=== PATIENT | male | born 1965 | race Caucasian/White ===

== ENCOUNTER 2017-04-20 07:49 | Emergency (ER) | payer BC ==
[2017-04-20] MEDS ORDERED: CEFAZOLIN 2 GM/D5W RTU 50 ML IV ONE (07:58)
[2017-04-20] MEDS ORDERED: DIPH/PERTUSS(ACELL)/TETANUS VAC/PF 0.5 ML SYR (>=10YO) IM ONE (07:59)
[2017-04-20] MEDS ORDERED: NORMAL SALINE 1000 ML 1,000 ML IV ONE (08:19)
[2017-04-20 10:00] LABS: ABSOLUTE BASOPHILS # (AUTO) 0.1 10^3/uL (0.0-0.2); ABSOLUTE EOSINOPHILS # (AUTO) 0.1 10^3/uL (0.0-0.6); ABSOLUTE LYMPHOCYTES (AUTO) 1.8 10^3/uL (0.5-4.7); ABSOLUTE MONOCYTES (AUTO) 0.7 10^3/uL (0.1-1.4); ABSOLUTE NEUT (AUTO) 8.6 10^3/uL (1.7-8.2); BASOPHILS % (AUTO) 0.5 % (0-2); EOSINOPHILS % (AUTO) 0.7 % (0-6); HEMATOCRIT 41.9 % (37.9-51.0); HEMOGLOBIN 13.9 g/dL (13.5-17.0); HGB HCT DIFFERENCE -0.2; LYMPHOCYTES % (AUTO) 15.8 % (13-45); MEAN CORPUSCULAR HEMOGLOBIN 29.4 pg (27.0-33.4); MEAN CORPUSCULAR HGB CONC 33.3 g/dL (32.0-36.0); MEAN CORPUSCULAR VOLUME 88 fl (80-97); MONOCYTES % (AUTO) 5.9 % (3-13); RED BLOOD COUNT 4.74 10^6/uL (4.35-5.55); RED CELL DISTRIBUTION WIDTH 12.9 % (11.5-14.0); SEGMENTED NEUTROPHILS % (AUTO) 77.1 % (42-78); WHITE BLOOD COUNT 11.2 10^3/uL (4.0-10.5)
[2017-04-20] MEDS ORDERED: MORPHINE SULFATE 10 MG/ML INJ IV ONE ×2 (10:00→11:15)
[2017-04-20] MEDS ORDERED: NORMAL SALINE 1000 ML 1,000 ML IV PRN (10:01)
[2017-04-20 10:06] LABS: ALANINE AMINOTRANSFERASE 49 U/L (21-72); ALBUMIN 3.9 g/dL (3.5-5.0); ALKALINE PHOSPHATASE 55 U/L (38-126); ANION GAP 11 (5-19); ASPARTATE AMINO TRANSFERASE 42 U/L (17-59); BILIRUBIN,DIRECT 0.5 mg/dL (0.0-0.4); BILIRUBIN,TOTAL 1.3 mg/dL (0.2-1.3); BLOOD UREA NITROGEN 17 mg/dL (7-20); CALCIUM 9.2 mg/dL (8.4-10.2); CARBON DIOXIDE 23 mmol/L (22-30); CHLORIDE 99 mmol/L (98-107); CREATININE RESULT 1.04 mg/dL (0.52-1.25); GLUCOSE 240 mg/dL (75-110); POTASSIUM 3.6 mmol/L (3.6-5.0); PROTHROMBIN TIME 14.4 SEC (11.4-15.4); SODIUM 132.9 mmol/L (137-145); TOTAL PROTEIN 6.6 g/dL (6.3-8.2)
[2017-04-20 10:07] LABS: PARTIAL THROMBOPLASTIN TIME 21.1 SEC (23.5-35.8)
--- NOTE | 2017-04-20 10:31 | RADIOLOGY REPORT (SQ) ---
EXAM DESCRIPTION: HUMERUS LEFT COMPLETED DATE/TIME: 04/20/2017 10:20 am REASON FOR STUDY: trauma, pain medial arm COMPARISON: None. NUMBER OF VIEWS: Two views. TECHNIQUE: Two radiographic images were acquired of the left humerus to include elbow and shoulder i n at least one projection. LIMITATIONS: None. FINDINGS: MINERALIZATION: Normal. BONES: No acute fracture or dislocation. No worrisome bone lesions. SOFT TISSUES: There appears to be an extensive soft tissue injury of the medial aspect of the left up per arm. OTHER: No other significant finding. IMPRESSION: Soft tissue injury with no osseous abnormality. TECHNICAL DOCUMENTATION: JOB ID: [id number] [employer]- All Rights Reserved
[2017-04-20] MEDS ORDERED: LIDOCAINE 1% INJ-PF (10 MG/ML) 30 ML SDV INJ ONE (11:12)
[2017-04-20] MEDS ORDERED: BACITRACIN ZINC OINTMENT 15 GM TP ONE (12:57)
--- NOTE | 2017-04-20 12:58 | CONSULTATION REPORT E ---
Consultation Report NAME: JUANCHO GARCIA : 1965 AGE: 52Y DATE: 04/20/2017 TO: DEANNE BO M.D. FROM: Nellie ORTIZ, Requesting Physician REASON FOR CONSULTATION: Patient has a large laceration on the left medial upper arm likely due to chainsaw. HISTORY OF PRESENT ILLNESS: This is a 60-year-old male who apparently was using his chainsaw to cut wood early this morning. The piece of wood that he was cutting apparently fell on his left shoulder and he may have been cut by his chainsaw on the left medial arm, though he is not sure this happened because the shirt that he has on does not have any rip. He had some bleeding when he came to the emergency room this morning and the wound is dressed with Piter, at that this time, no active bleeding noted. He is complaining of some numbness along the right middle second and the first finger, but he is able to move all his fingers well. On further physical examination, he has a laceration horizontally about 6-7 cm long with the muscle initially underneath the skin about 1 cm and no active bleeding noted. The tendons are somewhat exposed. He has difficulty strengthening his left arm. He has some abrasion on the left shoulder from a tree that hit him. The wound was redressed. IMPRESSION: 1. A large laceration of the left medial arm. Rule out nerve injury, likely median nerve. 2. No bone injury with x-ray of the arm negative for fracture, but large soft tissue laceration. RECOMMENDATION: I would ask an orthopedic surgeon to evaluate the wound primarily because of possible nerve or tendon injury. I have talked to Dr. Montilla who is going to see the patient. DICTATING PHYSICIAN: DEANNE BO M.D. [id number] PHY#: [id number] ID: [id number] JOB#: [id number] ACCT: [id number] cc:DEANNE BO M.D. >
--- NOTE | 2017-04-20 13:05 | PDOC CONSULTATION ---
History of Present Illness History of Present Illness: JUANCHO GARCIA is a 52 year old male who was using a chainsaw cutting limbs when he inadvertently fell he was unsure how the injury to his left arm occurred but after careful discussion with his witnesses they feel as though this is unlikely a sharp trauma injury and likely from his shirt or something else. Patient was cut off at the scene and no damage to the shirt he was wearing. At arrival to the emergency room patient had numbness and tingling specifically his index finger but that has improved. Pain currently controlled but worse with pressure. Denies headache dizziness or loss of consciousness. No complaints of neck pain, back pain or lower extremity injury. Current pain . Social History Smoking Status: Never Smoker Family History Parental Family History Reviewed: No Children Family History Reviewed: No Sibling(s) Family History Reviewed.: No Medication/Allergy Allergies/Adverse Reactions: No Known Allergies Allergy (Unverified 04/20/17 08:19) Review of Systems Constitutional: ABSENT: chills, fever(s), headache(s), weight gain, weight loss Eyes: ABSENT: visual disturbances Ears: ABSENT: hearing changes Cardiovascular: ABSENT: chest pain, dyspnea on exertion, edema, orthropnea, palpitations Respiratory: ABSENT: cough, hemoptysis Gastrointestinal: ABSENT: abdominal pain, constipation, diarrhea, hematemesis, hematochezia, nausea, vomiting Genitourinary: ABSENT: dysuria, hematuria Musculoskeletal: PRESENT: as per HPI Integumentary: ABSENT: rash, wounds Neurological: ABSENT: abnormal gait, abnormal speech, confusion, dizziness, focal weakness, syncope Psychiatric: ABSENT: anxiety, depression, homidical ideation, suicidal ideation Endocrine: ABSENT: cold intolerance, heat intolerance, menstrual abnormalities, polydipsia, polyuria Hematologic/Lymphatic: ABSENT: easy bleeding, easy bruising, lymphadenopathy Physical Exam Vital Signs: Temp Pulse Resp BP Pulse Ox 97.5 F 58 L 16 116/75 96 04/20/17 07:50 04/20/17 07:50 04/20/17 10:03 04/20/17 07:50 04/20/17 10:03 Intake & Output 04/19/17 04/20/17 04/21/17 06:59 06:59 06:59 Weight 80.286 kg General appearance: PRESENT: no acute distress, well-developed, well-nourished Head exam: PRESENT: atraumatic, normocephalic Eye exam: PRESENT: conjunctiva pink, EOMI, PERRLA. ABSENT: scleral icterus Ear exam: PRESENT: normal external ear exam Mouth exam: PRESENT: moist, tongue midline Neck exam: PRESENT: full ROM. ABSENT: carotid bruit, JVD, lymphadenopathy, thyromegaly Cardiovascular exam: PRESENT: RRR. ABSENT: diastolic murmur, rubs, systolic murmur Pulses: PRESENT: normal dorsalis pedis pul, +2 pedal pulses bilateral Vascular exam: PRESENT: normal capillary refill GI/Abdominal exam: PRESENT: normal bowel sounds, soft. ABSENT: distended, guarding, mass, organolmegaly, rebound, tenderness Rectal exam: PRESENT: deferred Musculoskeletal exam: PRESENT: other - Left arm: 1 cm laceration along the medial mid aspect of the humerus. Superficial venous bleeding no evidence of pulsatile bleeding. Ulnar collateral artery appreciated with palpitation and bleeding. Ulnar nerve visualized along with medial antebrachial cutaneous nerve. There is disruption of the medial aspect of the biceps muscle no evidence of tendon involvement. 2 point discrimination 4 mm throughout median and ulnar nerve distribution. Patient has full digit adduction/abduction. Abductor pollicis, adductor pollicis, first dorsal interossei 5/5. Intact sensation throughout radial nerve distribution. EPL/FPL intact. Independent DIP/PIP/MCP joint flexion/extension. Patient able to make full composite fist. Negative Wartenberg sign. Full pronation/supination. Full wrist flexion/ extension. Full elbow flexion/extension. Altered sensation on the medial antebrachial cutaneous nerve distribution. Neurological exam: PRESENT: alert, awake, oriented to person, oriented to place , oriented to time, oriented to situation, CN II-XII grossly intact. ABSENT: motor sensory deficit Psychiatric exam: PRESENT: appropriate affect, normal mood. ABSENT: homicidal ideation, suicidal ideation Skin exam: PRESENT: dry, intact, warm. ABSENT: cyanosis, rash Results Laboratory Results: 04/20/17 08:00 04/20/17 08:00 04/20/17 04/20/17 08:00 08:00 WBC 11.2 H RBC 4.74 Hgb 13.9 Hct 41.9 MCV 88 MCH 29.4 MCHC 33.3 RDW 12.9 Plt Count 156 Seg Neutrophils % 77.1 Lymphocytes % 15.8 Monocytes % 5.9 Eosinophils % 0.7 Basophils % 0.5 Absolute Neutrophils 8.6 H Absolute Lymphocytes 1.8 Absolute Monocytes 0.7 Absolute Eosinophils 0.1 Absolute Basophils 0.1 Sodium 132.9 L Potassium 3.6 Chloride 99 Carbon Dioxide 23 Anion Gap 11 BUN 17 Creatinine 1.04 Est GFR ( Amer) > 60 Est GFR (Non-Af Amer) > 60 Glucose 240 H Calcium 9.2 Total Bilirubin 1.3 AST 42 ALT 49 Alkaline Phosphatase 55 Total Protein 6.6 Albumin 3.9 Impressions: Humerus X-Ray 04/20/17 10:04 IMPRESSION: Soft tissue injury with no osseous abnormality. Status: Image reviewed by me - I have reviewed patient's radiographs which demonstrates soft tissue air likely secondary to patient's laceration injury no bony involvement. Assessment & Plan - Diagnosis (1) Laceration of left upper arm without complication Qualifiers: Encounter type: initial encounter Qualified Code(s): S41.112A - Laceration without foreign body of left upper arm, initial encounter Is this a current diagnosis for this admission?: YesPlan: Sustained a left upper arm injury is very close to disruption of the ulnar nerve but he has no distal signs of nerve injury and the nerve was visualized on examination. I feel the reason patient had numbness and tingling on presentation was likely secondary to neurapraxia/stretch from his initial injury this will likely resolve over time. There is the possibility of continued numbness along the medial antebrachial cutaneous nerve distribution but I also feel this is likely secondary to neurapraxia as opposed to nerve disruption or discontinuity. I have recommended irrigation of the wound and closure in the emergency room since there is no evidence of contamination. Patient will follow-up in the office with me in 10-14 days for wound check and we will also monitor patient's numbness and tingling.
--- NOTE | 2017-04-20 13:07 | ER Document Report ---
ED Wound - General Chief Complaint: Laceration Stated Complaint: LACERATION TO UPPER LEFT ARM Time Seen by Provider: 04/20/17 07:57 Notes: Patient is a 52-year-old male who presents emergency department for left medial arm injury. Patient states that he was up cutting down trees with a chainsaw when he lost control of it and he cut an area under his arm, unsure if it was from the chainsaw or contact with the tree branch. Patient states he has numbness and tingling in his entire left hand but worse in his left index finger and along the left ulnar arm. Full range of motion. [employer] strength intact. Pain with movement but bearable Patient denies any past medical past surgical history. Denies any tobacco, alcohol or drug use. - Related Data Allergies/Adverse Reactions: No Known Allergies Allergy (Unverified 04/20/17 08:19) Past Medical History - Social History Smoking Status: Never Smoker Chew tobacco use (# tins/day): No Frequency of alcohol use: None Drug Abuse: None Family History: Reviewed & Not Pertinent - Immunizations Hx Diphtheria, Pertussis, Tetanus Vaccination: Yes - 04/20/2017 Review of Systems - Review of Systems Constitutional: No symptoms reported Cardiovascular: No symptoms reported Respiratory: No symptoms reported Musculoskeletal: See HPI Skin: See HPI -: Yes All other systems reviewed and negative Physical Exam - Vital signs Vitals: Temp Pulse Resp BP Pulse Ox 97.5 F 58 L 20 116/75 99 04/20/17 07:50 04/20/17 07:50 04/20/17 07:50 04/20/17 07:50 04/20/17 07:50 - General General appearance: Appears well, Alert In distress: None - HEENT Head: Normocephalic, Abrasions - mild abraision noted on the top of his head without edema, hematoma, bruising, scalp defect Eyes: Normal Conjunctiva: Normal Pupils: PERRL - Respiratory Respiratory status: No respiratory distress Chest status: Nontender Breath sounds: Normal Chest palpation: Normal - Cardiovascular Rhythm: Regular Heart sounds: Normal auscultation Pulses: Normal: Brachial, Radial Normal capillary refill: Yes - Extremities General upper extremity: Tender - at wound site, Normal color, Normal ROM, Normal temperature. 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 Tissue injury noted on x-ray. No evidence of osseous injury. Status updated. Patient received 2 g of Rocephin and initiated on Keflex. patient evaluated by Dr. Santacruz and Dr. Montilla that the wound can be cleaned and closed in the emergency department. Patient will follow up with Dr. Montilla on April 30 for reevaluation. Per [facility] protocol and guidelines, this case was discussed with supervising physician Dr. Jada Spain prior to discharge - Vital Signs Vital signs: Temp Pulse Resp BP Pulse Ox 98.6 F 89 20 110/68 99 04/20/17 13:36 04/20/17 13:36 04/20/17 13:36 04/20/17 13:36 04/20/17 13:36 - Laboratory Result Diagrams: 04/20/17 08:00 04/20/17 08:00 Laboratory results interpreted by me: 04/20/17 04/20/17 04/20/17 08:00 08:00 08:00 WBC 11.2 H Absolute Neutrophils 8.6 H APTT 21.1 L Sodium 132.9 L Glucose 240 H Direct Bilirubin 0.5 H Procedures - Laceration/Wound Repair Left Medial Arm Wound length (cm): 12 Wound's Depth, Shape: Into muscle, Linear, Contused tissue Laceration pre-procedure: Sterile PPE donned, Betadine prep applied, Sterile drapes applied Anesthetic type: 1% Lidocaine Volume Anesthetic (mLs): 12 Wound explored: Clean, No foreign body removed Irrigated w/ Saline (mLs): 1,000 Wound Debrided: Minimal Wound Repaired With: Sutures Suture Size/Type: 4:0, Nylon Number of Sutures: 14 Layer Closure?: Yes Deep Layer Suture Size/Type: 4:0, Other - vicryl Number Deep Layer Sutures: 5 Post-procedure wound care: Sterile dressing applied, Sling applied Post-procedure NV exam normal: Yes Complications: No Adult Front & Back picture: 1 - laceration Left Arm Wound length (cm): 1 Wound's Depth, Shape: Superficial Wound explored: Clean, No foreign body removed Wound Debrided: Minimal Wound Repaired With: Dermabond Adult Front & Back picture: 1 - laceration 1 cm closed with dermabond Discharge - Discharge Clinical Impression: Laceration Condition: Good Disposition: HOME, SELF-CARE Instructions: Antibiotic Ointment Protection ([facility]), Laceration Care ([facility]), Prophylactic Antibiotic ([facility]), Tetanus Immunization Given ([facility]), Soap Cleansing ([facility]), Oral Narcotic Medication ([facility]) Additional Instructions: Pressure dressing will be needed daily Change the dressing at least once a day Keep the area clean and dry, covered for 72 hours then you can leave it open to air. Dress with bacitracin ointment with dressing changes Please return to the ER if signs of infection: redness, swelling, candelaria drainage, severe pain, fevers Prescriptions: Cephalexin [Keflex] 500 mg PO QID 7 Days Ibuprofen [Motrin 800 mg Tablet] 800 mg PO Q8H PRN #30 tab PRN Reason: Oxycodone HCl/Acetaminophen [Percocet 5-325 mg Tablet] 1 - 2 tab PO ASDIR PRN # 15 tablet PRN Reason: Forms: Special Work Note, Return to Work Referrals: VALERIE MONTILLA DO [ACTIVE STAFF] - 04/30/17 (Please follow up with Dr. Montilla to have your stitches removed and have your wound/nerve injury re-assessed. )
[2017-04-20 13:38] VITALS: BP 110/68
== END 2017-04-20 13:37 | disposition home or self-care (01) ==
LOC: ER 07:49
PROC: 0HQCXZZ Repair Left Upper Arm Skin, External Approach (ICD-10-PCS; principal; 2017-04-20)
DX: S41.112A Laceration without foreign body of left upper arm, initial encounter (principal); S00.01XA Abrasion of scalp, initial encounter; W45.8XXA Other foreign body or object entering through skin, initial encounter; Y93.H9 Activity, other involving exterior property and land maintenance, building and construction; Y99.8 Other external cause status; R20.0 Anesthesia of skin; R20.2 Paresthesia of skin; R53.1 Weakness
CPT/HCPCS: 96376; 99283; 90471; 96375; 96365; 36415; 85025; 85610; 85730; 80053; 73060; 90715; 12002; J3490 ×2; J2270; J7030; J0690